=== PATIENT | female | born 1990 | race Caucasian/White ===

== ENCOUNTER → 2016-12-30 | Outpatient (CLI) | payer BC, OTHER | LOC: MW.LAB 10:18 | PROVIDERS: ATTEND Obstetrics & Gynecology | DX: O36.80X1 Pregnancy with inconclusive fetal viability, fetus 1 (principal) | CPT/HCPCS: 36415; 84144; 84702 ==

== ENCOUNTER → 2017-01-01 | Outpatient (CLI) | payer BC, OTHER | LOC: MW.LAB 12:38 | PROVIDERS: ATTEND Obstetrics & Gynecology | DX: O36.80X1 Pregnancy with inconclusive fetal viability, fetus 1 (principal) | CPT/HCPCS: 36415; 84144; 84702 ==

== ENCOUNTER 2019-01-18 06:37 | Day surgery (SDC) | payer BC, OTHER ==
[~2019-01-18 06:37] MED LIST: Sodium Chloride 0.9% 10 ML SDV IV PRN; Sodium Chloride 0.9% 10 ML Syringe FLUSH PRN; Sodium Chloride 0.9% 2.5 ML Syringe FLUSH PRN
[2019-01-18] MEDS ORDERED: Scopolamine 1.5 MG Transdermal Patch TOP ONE (07:09)
[2019-01-18] MEDS ORDERED: Midazolam 1 MG/ML 2 ML SDV IVPUSH ONE (07:09)
[2019-01-18] MEDS ORDERED: Ondansetron 4 MG/2 ML SDV IVPUSH ONE (07:09)
[2019-01-18] MEDS ORDERED: Lidocaine 2% 5 ML SDV ONE (07:18)
[2019-01-18] MEDS ORDERED: Midazolam 1 MG/ML 2 ML SDV ONE (07:18)
[2019-01-18] MEDS ORDERED: fentaNYL 250 MCG/5 ML SDV ONE (07:18)
[2019-01-18] MEDS ORDERED: Ondansetron 4 MG/2 ML SDV ONE (07:18)
[2019-01-18] MEDS ORDERED: Propofol 200 MG/20 ML SDV ONE (07:18)
--- NOTE | 2019-01-18 07:25 | PCM.PREANE ---
Preanesthetic Assessment - Anesthesia/Transfusion/Family Hx Anesthesia History: Prior Anesthesia Without Reaction Family History of Anesthesia Reaction: No Transfusion History: No Prior Transfusion(s) Intubation History: Unknown - Review of Systems General: No Symptoms Pulmonary: No Symptoms Cardiovascular: No Symptoms Gastrointestinal: No Symptoms Neurological: No Symptoms Other: Reports: None - Physical Assessment O2 Sat by Pulse Oximetry: 96 Respiratory Rate: 16 Vital Signs: Last Vital Signs Temp 36.0 C 01/18/19 07:07 Pulse 98 01/18/19 07:07 Resp 16 01/18/19 07:07 BP 149/90 H 01/18/19 07:07 Pulse Ox 96 01/18/19 07:07 Height: 1.77 m Weight: 107.955 kg ASA Class: 2 Mental Status: Alert & Oriented x3 Airway Class: Mallampati = 2 Dentition: Reports: Normal Dentition Thyro-Mental Finger Breadths: 3 Mouth Opening Finger Breadths: 3 ROM/Head Extension: Full Lungs: Clear to Auscultation, Normal Respiratory Effort Cardiovascular: Regular Rate, Regular Rhythm - Allergies Allergies/Adverse Reactions: Allergies Allergy/AdvReac Type Severity Reaction Status Date / Time Sulfa (Sulfonamide Allergy Hives Verified 01/12/19 12:39 Antibiotics) SEASONAL Allergy Mild Other Uncoded 06/11/15 22:40 - Blood Blood Available: No - Anesthesia Plan Pre-Op Medication Ordered: None - Acknowledgements Anesthesia Type Planned: General Anesthesia Pt an Appropriate Candidate for the Planned Anesthesia: Yes Alternatives and Risks of Anesthesia Discussed w Pt/Guardian: Yes Pt/Guardian Understands and Agrees with Anesthesia Plan: Yes PreAnesthesia Questionnaire HEENT History: Reports: Other (See Below) Other HEENT History: wears glasses/contacts Cardiovascular History: Reports: None Respiratory History: Reports: None Gastrointestinal History: Reports: GERD Genitourinary History: Reports: None [employer] History: Reports: Spontaneous , Other (See Below) (h/o uterine polyps) Other OB/BYN History: ETOP Musculoskeletal History: Reports: None Neurological History: Reports: None Psychiatric History: Reports: None, Other (See Below) (h/o depression ) Endocrine/Metabolic History: Reports: Obesity/BMI 30+ Hematologic History: Reports: None Immunologic History: Reports: None Oncologic (Cancer) History: Reports: None Dermatologic History: Reports: None - Past Surgical History Head Surgeries/Procedures: Reports: None HEENT Surgical History: Reports: Oral Surgery Cardiovascular Surgical History: Reports: None Respiratory Surgical History: Reports: None GI Surgical History: Reports: None Female Surgical History: Reports: Other (See Below) Other Female Surgeries/Procedures: ETOP Endocrine Surgical History: Reports: None Neurological Surgical History: Reports: None Musculoskeletal Surgical History: Reports: None Oncologic Surgical History: Reports: None Dermatological Surgical History: Reports: None - SUBSTANCE USE Smoking Status *Q: Never Smoker Recreational Drug Use History: No - HOME MEDS Home Medications: Home Meds Desogestrel-Ethinyl Estradiol [[place] 28 Day Tablet] 1 tab PO ASDIRECTED [History] Folic Acid 0.4 mg PO DAILY 01/12/19 [History] PNV95/Ferrous Fumarate/FA [ Vitamin Tablet] 1 tab PO DAILY 01/12/19 [ History] - CURRENT (IN HOUSE) MEDS Current Meds: Current Medications Lactated Ringer's (Ringers, Lactated) 1,000 mls @ 125 mls/hr IV ASDIRECTED KRISTINA Sodium Chloride (Saline Flush) 10 ml FLUSH ASDIRECTED PRN PRN Reason: Keep Vein Open Sodium Chloride (Saline Flush) 2.5 ml FLUSH ASDIRECTED PRN PRN Reason: Keep Vein Open Sodium Chloride (Normal Saline) 10 ml IV ASDIRECTED PRN PRN Reason: IV Use Discontinued Medications Fentanyl (Sublimaze) Confirm Administered Dose 250 mcg .ROUTE .STK-MED ONE Stop: 01/18/19 07:19 Lidocaine (Xylocaine-Mpf 2%) Confirm Administered Dose 5 ml .ROUTE .STK-MED ONE Stop: 01/18/19 07:19 Midazolam HCl (Versed 1 Mg/Ml) 2 mg IVPUSH ONETIME ONE Stop: 01/18/19 07:10 Midazolam HCl (Versed 1 Mg/Ml) Confirm Administered Dose 2 mg .ROUTE .STK-MED ONE Stop: 01/18/19 07:19 Ondansetron HCl (Zofran) 4 mg IVPUSH ONETIME ONE Stop: 01/18/19 07:10 Last Admin: 01/18/19 07:20 Dose: 4 mg Ondansetron HCl (Zofran) Confirm Administered Dose 4 mg .ROUTE .STK-MED ONE Stop: 03/25/19 07:19 Propofol (Diprivan 20 Ml) Confirm Administered Dose 200 mg .ROUTE .STK-MED ONE Stop: 01/18/19 07:19 Scopolamine (Transderm-Scop) 1.5 mg TOP ONETIME ONE Stop: 01/18/19 07:10 Last Admin: 01/18/19 07:20 Dose: 1.5 mg
[2019-01-18] MEDS ORDERED: Lactated Ringers 1,000 ML IV SCH (07:30)
[2019-01-18] MEDS ORDERED: ePHEDrine 50 MG/ML SDV ONE (08:05)
[2019-01-18] MEDS ORDERED: Dexamethasone 4 MG/ML 5 ML MDV ONE (08:06)
[2019-01-18] MEDS ORDERED: Naloxone 0.4 MG/ML Syringe IVPUSH PRN (08:14)
[2019-01-18] MEDS ORDERED: fentaNYL 100 MCG/2 ML SDV IVPUSH PRN (08:14)
[2019-01-18] MEDS ORDERED: Albuterol 0.083% 2.5 MG/3 ML Neb Soln NEB PRN (08:14)
[2019-01-18] MEDS ORDERED: EPINEPHrine 1:10,000 1 MG/10 ML Syringe IVPUSH PRN (08:14)
[2019-01-18] MEDS ORDERED: Atropine 0.1 MG/ML 10 ML Syringe IVPUSH PRN ×2 (08:14)
[2019-01-18] MEDS ORDERED: 50% Dextrose in Water 50 ML Syringe IVPUSH PRN (08:14)
--- NOTE | 2019-01-18 08:37 | PCM.OPNOTE ---
- General Post-Op/Procedure Note Date of Surgery/Procedure: 01/18/19 Operative Procedure(s): operative hysteroscopy, polypectomy Findings: normal appearing uterine cavity, endometrial polyp Pre Op Diagnosis: endometrial polyp Post-Op Diagnosis: same Anesthesia Technique: General LMA Primary Surgeon: Sharla Fletcher Secondary Surgeon: Sharla Parr ([id number]) Anesthesia Provider: Juice [place] Pathology: endometrial polyp, endometrial curettings Fluid Replacement, Intraop: 1,000 EBL in mLs: 10 Complications: none known Condition: Good Free Text/Narrative:: see dictation by Dr. Fletcher
[2019-01-18] MEDS ORDERED: Ketorolac 30 MG/ML SDV IVPUSH ONE (08:47)
--- NOTE | 2019-01-18 09:02 | PCM.POSTAN ---
POST ANESTHESIA ASSESSMENT - MENTAL STATUS Mental Status: Alert, Oriented - RESPIRATORY Respiratory Status: Respiratory Rate WNL, Airway Patent, O2 Saturation Stable - CARDIOVASCULAR CV Status: Pulse Rate WNL, Blood Pressure Stable - GASTROINTESTINAL GI Status: No Symptoms - PAIN Pain Score: 1 - POST OP HYDRATION Hydration Status: Adequate & Stable - OBSERVATIONS Free Text/Narrative:: no anesthesia problems
--- NOTE | 2019-01-18 11:19 | PCM48HPAN ---
Post Anesthesia Note - EVALUATION WITHIN 48HRS OF ANESTHETIC Vital Signs in Normal Range: Yes Patient Participated in Evaluation: Yes Respiratory Function Stable: Yes Airway Patent: Yes Cardiovascular Function Stable: Yes Hydration Status Stable: Yes Pain Control Satisfactory: Yes Nausea and Vomiting Control Satisfactory: Yes Mental Status Recovered: Yes Resp Rate: 21 - COMMENTS/OBSERVATIONS Free Text/Narrative:: no anesthesia problems
[2019-01-18 13:18] VITALS: BP 124/74
--- NOTE | 2019-01-18 14:49 | OR ---
SURGEON: Sharla Fletcher M.D. DATE OF PROCEDURE: 01/18/2019 PREOPERATIVE DIAGNOSIS: Endometrial polyp. POSTOPERATIVE DIAGNOSIS: Endometrial polyp. PROCEDURE: Operative hysteroscopy with polypectomy, curettage of endometrium. PRIMARY SURGEON: Sharla Fletcher M.D. MASTER COSMETOLOGIST: OCTAVIANO Barger. ANESTHESIA: General LMA. FLUIDS: 1000 mL of crystalloid. ESTIMATED BLOOD LOSS: Less than 10 mL. COMPLICATIONS: None. FINDINGS: Normal-appearing uterine cavity, anterior mid uterine small polypoid lesion noted. DISPOSITION: The patient to PACU, stable. Specimen to pathology. DESCRIPTION OF PROCEDURE: Desiree is a 28-year-old female who most recently on imaging studies was noted to have what appears to be a polypoid lesion. Therefore, she is here today for further evaluation with hysteroscopy and polypectomy as indicated. Risks of procedure have been discussed for her. The patient was taken to the operating room where she underwent general LMA, was then placed in modified dorsal lithotomy position, was prepped and draped in the usual sterile fashion. SCDs to lower extremities. Bladder was drained. Time- out was performed. Speculum was introduced in the vagina. Anterior lip of cervix was grasped with Allis clamp. Cervix gently dilated to 5 mm. MyoSure hysteroscope was now gently introduced. Using normal saline as distention media, I was able to visualize the fundus of the uterus. Right ostia and left ostia were able to be visualized. Photographs taken. There was a polypoid lesion along the anterior mid fundal portion of the uterus in the lower uterine segment. Otherwise, in the endocervical canal with no other polypoid lesions. MyoSure was gently introduced and the polypoid lesion was resected to the base until it was flushed with the remainder of the endometrial cavity. Specimen to pathology. Remainder of the cavity appeared normal. No other lesion noted. MyoSure was now removed. Gentle curettage was now performed. The specimens will be sent to pathology. All instruments were removed from vagina. Hemostasis appeared evident. Sponge and instrument count was correct x2. The patient tolerated the procedure well. She will go to PACU in stable condition. LISS / SHIMON /[id number]
== END 2019-01-18 11:27 | disposition home or self-care (01) ==
LOC: MW.SDS 06:37
PROVIDERS: ATTEND Obstetrics & Gynecology
DX: N84.0 Polyp of corpus uteri (principal); E66.9 Obesity, unspecified; Z68.34 Body mass index [BMI] 34.0-34.9, adult; K21.9 Gastro-esophageal reflux disease without esophagitis; Z79.899 Other long term (current) drug therapy; Z88.2 Allergy status to sulfonamides
CPT/HCPCS: 36415; 58558; 84703; 85027; 88305; A9270; J1100; J1885; J2001; J2250; J2405; J2704; J3010; J7120; 00952